=== PATIENT | male | born 1965 | race Caucasian/White ===

== ENCOUNTER → 2016-05-13 | Outpatient (CLI) | payer BC ==
--- NOTE | 2016-05-14 09:09 | MR ---
EXAMINATION: MRI lumbar spine HISTORY: Pain COMPARISON: None TECHNIQUE: Multiplanar and multisequence images obtained of the lumbar spine without contrast. FINDINGS: The lumbar spinal alignment appears normal. The vertebral body heights are grossly maintai horacio. No abnormal bone marrow signal is noted. The distal spinal cord appears normal and the conus te rminates at L1. The visualized retroperitoneal structures appear normal. The SI joints are symmetric . T12-L1: Unremarkable. L1-L2: Tiny diffuse disc bulge with minimal spinal canal stenosis. No significant neural foraminal s tenosis. L2-L3: Tiny diffuse disc bulge minimal spinal canal stenosis. No significant neural foraminal stenos is. L3-L4: Small to moderate diffuse disc bulge with facet and ligamentum flavum hypertrophy resulting i n [id number] spinal canal stenosis. Moderate bilateral neural foraminal stenosis. L4-L5: Moderate diffuse disc bulge resulting in mild spinal canal stenosis. Mild bilateral neural fo raminal stenosis. L5-S1: Moderate diffuse disc bulge asymmetric to the right abutting the right traversing S1 nerve ro ot. Mild bilateral neural foraminal stenosis. IMPRESSION: 1. Multilevel degenerative disc disease noted within the lumbar spine most prominent from L3 to S1 w ith individual details above.
== END ==
LOC: MW.MRI 13:52
PROVIDERS: ATTEND Physician Assistant
DX: M25.551 Pain in right hip (principal); M47.817 Spondylosis without myelopathy or radiculopathy, lumbosacral region
CPT/HCPCS: 72148; 72148-26

== ENCOUNTER 2019-07-02 08:18 | Emergency (ER) | payer BC ==
[2019-07-02] MEDS ORDERED: Phenylephrine 1% 10 MG/ML SDV IM ONE (08:38)
[2019-07-02] MEDS ORDERED: Bupivacaine 0.5% 10 ML SDV INJECT ONE (08:38)
--- NOTE | 2019-07-02 08:43 | EDM.PDOC ---
ED HPI GENERAL MEDICAL PROBLEM - General Chief Complaint: Genitourinary Problem Stated Complaint: ALLERGIC REACTION TO MEDICATION Time Seen by Provider: 07/02/19 08:31 - History of Present Illness INITIAL COMMENTS - FREE TEXT/NARRATIVE: History of present illness: [Presents with an erection that will not go down. Patient states this is never happened before he woke with an erection this morning after taking trazodone to sleep last night and this morning he has been unable to relax his erection. Patient states she has no other medical problems besides insomnia and low back pain that is chronic. No prior history and he denies drug use. Review of systems: As per history of present illness and below otherwise all systems reviewed and negative. Past medical history: As per history of present illness and as reviewed below otherwise noncontributory. Surgical history: As per history of present illness and as reviewed below otherwise noncontributory. Social history: No reported history of drug or alcohol abuse. Family history: As per history of present illness and as reviewed below otherwise noncontributory. Physical exam: HEENT: Atraumatic, normocephalic, pupils reactive, negative for conjunctival pallor or scleral icterus, mucous membranes moist, throat clear, neck supple, nontender, trachea midline. Lungs: Clear to auscultation, breath sounds equal bilaterally, chest nontender. Heart: S1S2, regular, negative for clicks, rubs, or JVD. Abdomen: Soft, nondistended, nontender. Negative for masses or hepatosplenomegaly. Negative for costovertebral tenderness. Pelvis: Stable nontender. Genitourinary: He has an erection on exam Rectal: Deferred. Extremities: Atraumatic, negative for cords or calf pain. Neurovascular unremarkable. Neuro: Awake, alert, oriented. Cranial nerves II through XII unremarkable. Cerebellum unremarkable. Motor and sensory unremarkable throughout. Exam nonfocal. Diagnostics: [] Therapeutics: [] Impression: Priapism [] Plan: A dorsal penile block will be placed and then phenylephrine will be injected into the corpora cavernosa and he will be reassessed [] Definitive disposition and diagnosis as appropriate pending reevaluation and review of above. Penis Pain Score (Numeric/FACES): 3 - Related Data Allergies Allergy/AdvReac Type Severity Reaction Status Date / Time No Known Allergies Allergy Verified 07/02/19 08:25 Home Meds: Home Meds traZODone 150 mg PO ASDIRECTED 07/02/19 [History] Past Medical History HEENT History: Reports: Other (See Below) Other HEENT History: wears glasses Cardiovascular History: Reports: None Respiratory History: Reports: None Gastrointestinal History: Reports: None Genitourinary History: Reports: Renal Calculus Musculoskeletal History: Reports: Arthritis, Back Pain, Chronic Neurological History: Reports: None Psychiatric History: Reports: Anxiety Endocrine/Metabolic History: Reports: None Hematologic History: Reports: None Immunologic History: Reports: None Oncologic (Cancer) History: Reports: None Dermatologic History: Reports: None - Infectious Disease History Infectious Disease History: Reports: None - Past Surgical History Head Surgeries/Procedures: Reports: None Male Surgical History: Reports: Kidney Stone Extraction Social & Family History - Family History Family Medical History: Noncontributory - Tobacco Use Smoking Status *Q: Former Smoker Used Tobacco, but Quit: Yes Month/Year Tobacco Last Used: 2009 - Caffeine Use Caffeine Use: Reports: Coffee - Recreational Drug Use Recreational Drug Use: No ED ROS GENERAL - Review of Systems Review Of Systems: See Below ED EXAM, GENERAL - Physical Exam Exam: See Below ED GENERAL MEDICAL PROCEDURES - Additional/Other Procedure(s) Other (Free Text) Procedure(s): A dorsal penis block was performed using 5 mils of 0.5% bupivacaine bilateral aspiration of approximately 4 mils of blood was performed on each side of the penis after each aspiration approximately 500 mcg of phenylephrine was injected into the corpora cavernosum. A bandage was then applied and the patient will be reassessed detumescence was beginning after the first injection. Course - Vital Signs Text/Narrative:: At 10:15 AM the patient was rechecked he has achieved detumescence he was able to void spontaneously in the ED will be discharged home to follow-up with urology he is to avoid trazodone Last Recorded V/S: Last Vital Signs Temp 35.4 C L 07/02/19 08:20 Pulse 90 07/02/19 08:59 Resp 16 07/02/19 08:20 BP 141/96 H 07/02/19 08:59 Pulse Ox 98 07/02/19 08:59 - Orders/Labs/Meds Meds: Medications Discontinued Medications Generic Name Dose Route Start Last Admin Trade Name Freq PRN Reason Stop Dose Admin Bupivacaine HCl 10 ml 07/02/19 08:38 07/02/19 08:57 Sensorcaine-Mpf 0.5% INJECT 07/02/19 08:39 10 ml ONETIME ONE Administration Phenylephrine HCl 5 mg 07/02/19 08:38 07/02/19 08:58 Nirmal-Synephrine IM 07/02/19 08:39 5 mg ONETIME ONE Administration Departure - Departure Time of Disposition: 10:14 Disposition: Home, Self-Care 01 Clinical Impression: Priapism - Discharge Information *PRESCRIPTION DRUG MONITORING PROGRAM REVIEWED*: Not Applicable *COPY OF PRESCRIPTION DRUG MONITORING REPORT IN PATIENT SHANE: Not Applicable Instructions: Priapism Referrals: Kofi Curry MD [Primary Care Provider] - Forms: ED Department Discharge Additional Instructions: [facility] - Urology [address] [place] [id number] The following information is given to patients seen in the emergency department who are being discharged to home. This information is to outline your options for follow-up care. We provide all patients seen in our emergency department with a follow-up referral. The need for follow-up, as well as the timing and circumstances, are variable depending upon the specifics of your emergency department visit. If you don't have a primary care physician on staff, we will provide you with a referral. We always advise you to contact your personal physician following an emergency department visit to inform them of the circumstance of the visit and for follow-up with them and/or the need for any referrals to a consulting specialist. The emergency department will also refer you to a specialist when appropriate. This referral assures that you have the opportunity for follow-up care with a specialist. All of these measure are taken in an effort to provide you with optimal care, which includes your follow-up. Under all circumstances we always encourage you to contact your private physician who remains a resource for coordinating your care. When calling for follow-up care, please make the office aware that this follow-up is from your recent emergency room visit. If for any reason you are refused follow-up, please contact the [facility] Emergency Department at and asked to speak to the emergency department charge nurse. Sepsis Event Note - Evaluation Sepsis Screening Result: No Definite Risk - Focused Exam Vital Signs: Vital Signs Temp Pulse Resp BP Pulse Ox 07/02/19 08:59 90 141/96 H 98 07/02/19 08:20 35.4 C L 91 16 124/94 H 96 Date Exam was Performed: 07/02/19 Time Exam was Performed: 10:13
[2019-07-02 10:15] VITALS: BP 123/89; PULSE 79
== END 2019-07-02 10:22 | disposition home or self-care (01) ==
LOC: MW.ED 08:18
DX: N48.30 Priapism, unspecified (principal)
CPT/HCPCS: 64450; 96372; 99283; J2370; J3490

== ENCOUNTER 2020-10-25 15:18 | Emergency (ER) | payer BC ==
[2020-10-25 20:21] VITALS: BP 123/96; PULSE 75
--- NOTE | 2020-10-25 20:31 | EDM.PDOC ---
ED HPI GENERAL MEDICAL PROBLEM - General Chief Complaint: Genitourinary Problem Stated Complaint: NUMBING IN THE GROIN Time Seen by Provider: 10/25/20 20:08 - History of Present Illness INITIAL COMMENTS - FREE TEXT/NARRATIVE: 54yoM with a h/o disc protrusion and back pain 2/2 an injury in Feb 2020. He had an MRI in [place] and was referred to a specialist in [place]. However, the patient's insurance said that he had to do PT first. He did that and did not have any type of procedure. Since that time he has had some degree of back pain as well as numbness in the distribution of the right sciatic nerve distribution. He reinjured his back at work 2 to 3 weeks ago. Since that time he has had worsening lower back pain. Today he woke up with genital tingling and numbness. This is a new symptom for him. No fevers his back pain is moderate and worsens with sitting. No urinary incontinence no bowel incontinence - Related Data Allergies Allergy/AdvReac Type Severity Reaction Status Date / Time No Known Allergies Allergy Verified 07/02/19 08:25 Home Meds: Home Meds traZODone 150 mg PO ASDIRECTED 07/02/19 [History] Past Medical History HEENT History: Reports: Other (See Below) Other HEENT History: wears glasses Cardiovascular History: Reports: None Respiratory History: Reports: None Gastrointestinal History: Reports: None Genitourinary History: Reports: Renal Calculus Musculoskeletal History: Reports: Arthritis, Back Pain, Chronic Neurological History: Reports: None Psychiatric History: Reports: Anxiety Endocrine/Metabolic History: Reports: None Hematologic History: Reports: None Immunologic History: Reports: None Oncologic (Cancer) History: Reports: None Dermatologic History: Reports: None - Infectious Disease History Infectious Disease History: Reports: None - Past Surgical History Head Surgeries/Procedures: Reports: None Male Surgical History: Reports: Kidney Stone Extraction Social & Family History - Family History Family Medical History: No Pertinent Family History - Caffeine Use Caffeine Use: Reports: Coffee ED ROS GENERAL - Review of Systems Review Of Systems: See Below Free Text/Narrative/Comment: General: No fever. Skin: No rash. Eyes: No vision problems. ENT: No sore throat. Neck: No neck stiffness. Respiratory: No shortness of breath. Cardiac: No chest pain. Gastrointestinal: No nausea, vomiting or abdominal pain. Urinary: No dysuria. Musculoskeletal: Per HPI Neurologic: No headache. ED EXAM, GENERAL - Physical Exam Exam: See Below Free Text/Narrative:: General Appearance: No acute distress, appears comfortable Skin: No rash HEENT: Normocephalic/atraumatic, sclera anicteric, mucous membranes moist Neck: Normal range of motion Chest and Lungs: Normal work of breathing Cardiovascular: Intact distal perfusion Musculoskeletal: No edema or tenderness Neurologic: 5 out of 5 strength in the bilateral hips and abduction and abduction 5 out of 5 strength in the left leg in flexion and extension 4 out of 5 strength in the right leg in flexion and extension patient also with 4 out of 5 strength in right knee flexion and 4 out of 5 strength in right ankle dorsiflexion the left lower extremity is 5 out of 5 strength throughout he has diminished sensation on his foot and along his posterior leg and calf he has bilaterally intact cremasteric reflexes but tingling numbness and diminished sensation over his genitals and in the perineum his rectal tone is intact Psychiatric: Appropriate, cooperative Departure - Departure Time of Disposition: 20:34 Disposition: DC/Tfer to Acute Hospital 02 Condition: Good Clinical Impression: Back pain - Discharge Information *PRESCRIPTION DRUG MONITORING PROGRAM REVIEWED*: Not Applicable *COPY OF PRESCRIPTION DRUG MONITORING REPORT IN PATIENT SHANE: Not Applicable Referrals: Kofi Curry MD [Primary Care Provider] - - Assessment/Plan Assessment:: 54-year-old male presented with signs and symptoms that are concerning for developing cauda equina. We do not have MRI capability here. I discussed the case in full with Dr. Chester at [facility] in my not the patient has been accepted for transfer there his will drive him by private vehicle. Dr. Chester and I discussed and I passed on to the patient that if he does indeed have cauda equina or require any emergent surgical intervention he will likely need to be transferred on is my not currently has no beds. However, that is true for multiple hospitals in the area and if his MRI does not indicate a need for an emergent procedure in an exceptionally long transport would be unnecessary. For this reason I think transfer to is reasonable Dr. Chester agrees. Patient agrees to transfer.
== END 2020-10-25 20:40 ==
LOC: MW.ED 15:18
DX: M54.5 Low back pain (principal)
CPT/HCPCS: 99284

== ENCOUNTER 2022-02-19 12:10 | Emergency (ER) | payer BC ==
[2022-02-19 12:19] VITALS: PULSE 75
[2022-02-19] MEDS ORDERED: Diphtheria,Pertussis(Acell),Tetanus Vaccine 0.5 ML Syringe IM ONE (12:37)
[2022-02-19 13:20] VITALS: BP 143/85
== END 2022-02-19 13:20 | disposition home or self-care (01) ==
LOC: MW.ED 12:10
DX: S61.210A Laceration without foreign body of right index finger without damage to nail, initial encounter (principal); Z23 Encounter for immunization; Z88.8 Allergy status to other drugs, medicaments and biological substances; W26.8XXA Contact with other sharp object(s), not elsewhere classified, initial encounter; Y99.0 Civilian activity done for income or pay
CPT/HCPCS: 12001; 90471; 90715; 99282-25